=== PATIENT | male | born 1970 | race African-American/Black ===

== ENCOUNTER 2024-12-30 12:35 | Inpatient (IN) | payer BC, OTHER ==
[~2024-12-30] VITALS: Ht 172.7 cm; Wt 86.5 kg
--- NOTE | 2024-12-30 13:10 | ED.PDOC ---
History of Present Illness HPI Comments Patient is a 54-year-old with a past medical history of asthma, prostatomegaly was brought to the ED via EMS with a chief complaint of right flank pain. Reports that the pain started earlier in the morning at around 8:00 a.m. was constant, radiating to his right groin in the right upper quadrant got relieved on its own for about hour and a half and then started to have pain again with similar pattern associated with nausea. Patient denied any vomiting, diarrhea, dysuria. Reported that in the morning he had a bowel movement which was slightly watery in consistency. Denies fever or chills Chief Complaint: Flank Pain Time Seen by MD: 12:43 Allergies: Coded Allergies: NO KNOWN ALLERGIES (Unverified , 12/30/24) Past Medical History PAST MEDICAL HISTORY: Asthma Past Medical History (Other): Prostatomegaly Surgical History: Denies all surgeries Family History Family History: Reviewed,noncontributory to illness Social History Smoker: Non-Smoker Alcohol: Occasionally Drugs: Denies Drug Use Lives In: Home Constitutional: denies: chills, diaphoresis, fatigue, fever, malaise, sweats, weakness, others EENTM: denies: blurred vision, double vision, ear bleeding, ear discharge, ear drainage, ear pain, ear ringing, eye pain, eye redness, hearing loss, mouth pain, mouth swelling, nasal discharge, nose bleeding, nose congestion, nose pain, photophobia, tearing, throat pain, throat swelling, voice changes, others Respiratory: denies: cough, hemoptysis, orthopnea, SOB at rest, shortness of breath, SOB with excertion, stridor, wheezing, others Cardiovascular: denies: chest pain, dizzy spells, diaphoresis, Dyspnea on exertion, edema, irregular heart beat, left arm pain, lightheadedness, palpitations, PND, syncope, others Gastrointestinal: reports: abdominal pain (Right flank pain), nausea Genitourinary: denies: burning, dysuria, flank pain, frequency, hematuria, incontinence, penile discharge, penile sore, pain, testicle pain, testicle swelling, urgency, others Neurological: denies: dizziness, fainting, headache, left sided numbness, left sided weakness, numbness, paresthesia, pre-existing deficit, right sided numbness, right sided weakness, seizure, speech problems, tingling, tremors, weakness, others Musculoskeletal: denies: back pain, gout, joint pain, joint swelling, muscle pain, muscle stiffness, neck pain, others Integumetry: denies: bruises, change in color, change in hair/nails, dryness, laceration, lesions, lumps, rash, wounds, others Allergic/Immunocompromised: denies: Difficulty Healing, Frequent Infections, Hives, Itching, others Hematologic/Lymphatic: denies: anemia, blood clots, easy bleeding, easy bruising, swollen glands, others Physical Exam General Appearance: Mild Distress, Normal HEENT: Normal ENT Inspection, Pharynx Normal, TMs Normal Neck: Full Range of Motion, Non-Tender, Normal, Normal Inspection Respiratory: Chest Non-Tender, Lungs Clear, No Accessory Muscle Use, No Respiratory Distress, Normal Breath Sounds Cardiovascular: No Edema, No JVD, No Murmur, No Gallop, Normal Peripheral Pulses, Regular Rate/Rhythm Breast Exam: Deferred Gastrointestinal: No Organomegaly, Normal Bowel Sounds, RUQ, Tenderness Genitalia: Deferred Pelvic: Deferred Rectal: Deferred Extremities: No calf tenderness, Normal capillary refill, Normal inspection, Normal range of motion, Non-tender, No pedal edema Neurologic: Alert, can dryer II-XII nml as Tested, No Motor Deficits, Normal Affect, Normal Mood, No Sensory Deficits Cerebellar Function: NOT DONE Reflexes: NOT DONE Skin: Dry, Normal Color, Warm Peripheral Pulses: 2+ dorsalis pedis (R), 2+ dorsalis pedis (L), 2+ Radial (R), 2+ Radial (L) Lymphatic: No Adenopathy Was a procedure done? Was a procedure done?: No Differential Dx Considerations may include: Nephrolithiasis, ureteric colic, biliary colic, acute cholecystitis, gastroenteritis, colitis X-Ray, Labs, Meds, VS Vital Signs Date Time Temp Pulse Resp B/P (MAP) Pulse Ox O2 Delivery O2 Flow Rate FiO2 12/30/24 14:01 97.9 65 17 120/77 (91) 98 97.9 12/30/24 14:01 Room Air* 0 21 12/30/24 12:38 97.3 71 18 125/89 (101) 98 97.3 Lab Test 12/30/24 13:15 Range/Units White Blood Count 16.5 H 4.4-10.8 10^3/uL Red Blood Count 4.72 4.5-5.90 10^6/uL Hemoglobin 14.4 13.5-17.5 g/dL Hematocrit 44.0 41.0-53.0 % Mean Corpuscular Volume 93.3 80.0-100.0 fL Mean Corpuscular Hemoglobin 30.5 28.0-32.0 pg Mean Corpuscular Hemoglobin Concent 32.7 32.0-36.0 g/dL Red Cell Distribution Width 13.8 11.8-14.3 % Platelet Count 273 140-450 10^3/uL Mean Platelet Volume 10.1 6.9-10.8 fL Neutrophils (%) (Auto) 86.7 H 37.0-80.0 % Lymphocytes (%) (Auto) 8.3 L 10.0-50.0 % Monocytes (%) (Auto) 4.6 0.0-12.0 % Eosinophils (%) (Auto) 0.1 0.0-7.0 % Basophils (%) (Auto) 0.3 0.0-2.0 % Neutrophils # (Auto) 14.3 H 1.6-8.6 10 ^3/uL Lymphocytes # (Auto) 1.4 0.4-5.4 10 ^3/uL Monocytes # (Auto) 0.8 0-1.3 10 ^3/uL Eosinophils # (Auto) 0 0-0.8 10 ^3/uL Basophils # (Auto) 0.1 0-0.2 10 ^3/uL Nucleated Red Blood Cells 0.1 % Sodium Level 139 136-145 mmol/L Potassium Level 3.8 3.5-5.1 mmol/L Chloride Level 106 98-107 mmol/L Carbon Dioxide Level 23 20-31 mmol/L Anion Gap 10 5-15 Blood Urea Nitrogen 13 9-23 mg/dL Creatinine 1.14 0.700-1.30 mg/dL Glomerular Filtration Rate Calc 76 >90 mL/min BUN/Creatinine Ratio 11.4 10.0-20.0 Serum Glucose 106 74-106 mg/dL Calcium Level 9.4 8.7-10.4 mg/dL Lipase 30 12-53 U/L Current Medications Medications (Trade) Dose Ordered Sig/Maurice Route Start Time Stop Time Status Last Admin Ketorolac Tromethamine (Toradol Injection) 15 mg ONCE ONCE IV 12/30/24 12:45 12/30/24 12:47 DC 12/30/24 14:25 Patient 54 y/o male with c/c of right flank pain, intermittant and crampy started earlier in the morning today. CT abd pelvis showed right UVJ 2mm stone and bladder wall thickening upto 10mm. patient had elevated WBC count. suspecting UTI patient was given IV ABx and fluids, and as the patient continued to have intermittant pain, he will need further inpatient workup and management. Plan of care was explained to the patient and he agreed with the plan. Time of 1ST Reevaluation: 17:01 Reevaluation 1ST: Improved Patient Education/Counseling: Diagnosis, Treatment Family Education/Counseling: No Family Present SEPSIS Sepsis Screen Physician Orders Ct Ab Pel Wo Con-No Oral Or Iv (12/30/24 12:44) Urinalysis (12/30/24 12:44) Heplock Iv (12/30/24 ) Ceftriaxone Ivpb Rocephin (12/30/24 17:30) NS (12/30/24 17:30) Tamsulosin Hydrochloride (Flomax) (12/30/24 17:30) Vital Signs Date Time Temp Pulse Resp B/P (MAP) Pulse Ox O2 Delivery O2 Flow Rate FiO2 12/30/24 14:01 97.9 65 17 120/77 (91) 98 97.9 12/30/24 14:01 Room Air* 0 21 12/30/24 12:38 97.3 71 18 125/89 (101) 98 97.3 Laboratory Tests Test 12/30/24 13:15 White Blood Count 16.5 10^3/uL (4.4-10.8) H Medications Medications Dose Ordered Sig/Maurice Route Start Time Stop Time Status Last Admin Dose Admin Ketorolac Tromethamine 15 mg ONCE ONCE IV 12/30/24 12:45 12/30/24 12:47 DC 12/30/24 14:25 Departure 1 Departure Time of Disposition: 17:35 Impression: Primary Impression: Ureterovesical junction (UVJ) obstruction Additional Impressions: Ureteric calculus Hydronephrosis Disposition: ADMITTED INPATIENT Condition: Stable Critical Care Note Critical Care Time?: No Stability Stability form required: No Heart Score Heart Score: Heart Score Response (Comments) Value History N/A 0 EKG N/A 0 Age N/A 0 Risk Factors N/A 0 Troponin N/A 0 Total 0 CYNDI NEWMAN RESIDENT Dec 30, 2024 13:10
[2024-12-30 13:51] LABS: Hematocrit 44.0 % (41.0-53.0); Hemoglobin 14.4 g/dL (13.5-17.5); Mean Corpuscular Hemoglobin 30.5 pg (28.0-32.0); Mean Corpuscular Volume 93.3 fL (80.0-100.0); Nucleated Red Blood Cells % 0.1 %
[2024-12-30 13:54] LABS: Chloride 106 mmol/L (98-107); Potassium 3.8 mmol/L (3.5-5.1); Sodium 139 mmol/L (136-145)
--- NOTE | 2024-12-30 13:54 | DVH ---
Indication: right flank pain Technique: CT axial images of the abdomen and pelvis are obtained without contrast. Coronal and sagit pernell reformats were obtained. Radiation Dose Information: CTDI volume is 718.23 mGy. Dose-length product is 710.39 mGy*cm Comparison: None FINDINGS: There is limited interpretation of the abdomen and pelvis without administration of intravenous contr ast. Lung bases demonstrate atelectasis. Adrenal glands, spleen pancreas and liver unremarkable in shape. No CT evidence for cholelithiasis. Right kidney demonstrates [id number] right hydroureteronephrosis secondary to a 2 mm calculus o f the right ureterovesicular junction. Left kidney demonstrates no hydronephrosis / nephrolithiasis. Stomach is partially distended. Small bowel loops are normal in caliber. Normal appendix. Moderate volume stool in the colon. Bladder partially distended. Bladder wall thic kening up to 10 mm. No free pelvic fluid. No inguinal lymphadenopathy. Moderate bilateral sacroiliac degenerative joint disease. IMPRESSION: [id number]-[id number] right hydroureteronephrosis secondary to a 2 mm calculus at the right ureterovesicul ar junction. Bladder wall thickening which can be secondary to cystitis, neurogenic bladder, outlet obstruction. Other findings as described.
[2024-12-30 13:55] LABS: Anion Gap 10 (5-15); Carbon Dioxide 23 mmol/L (20-31)
[2024-12-30 13:56] LABS: Calcium 9.4 mg/dL (8.7-10.4)
[2024-12-30 14:01] LABS: BUN/Creatinine Ratio 11.4 (10.0-20.0); Blood Urea Nitrogen 13 mg/dL (9-23); Glucose 106 mg/dL (74-106); Lipase 30 U/L (12-53)
[2024-12-30] MEDS: KETOROLAC TROMETH 30 MG/ML 1ML VIAL IV ONE (14:25)
[2024-12-30] MEDS: cefTRIAXone 1GM/50ML D5W 50 ML IV ONE (17:45)
[2024-12-30] MEDS: TAMSULOSIN HYDROCHLORIDE 0.4 MG CAP PO ONE (17:45)
[2024-12-30] MEDS: SODIUM CHLORIDE 0.9% 1,000 ML IV ONE (17:45)
[2024-12-30 18:23] LABS: Urine Protein, UAD Negative (Negative)
[2024-12-30] MEDS ORDERED: ONDANSETRON HCL 4 MG/2 ML VIAL IV PRN (19:00)
[2024-12-30] MEDS ORDERED: ACETAMINOPHEN 325 MG TAB PO PRN (19:00)
[2024-12-30] MEDS ORDERED: HYDROcodone-ACET 5/325MG TAB PO PRN (19:00)
[2024-12-30] MEDS ORDERED: MORPHINE SULFATE INJ 2 MG/ml SYRG IV PRN (19:00)
[2024-12-30 20:12] VITALS: RESP 18; O2SAT 99
[2024-12-30 20:30] VITALS: BP 129/72; PULSE 73; RESP 16; TEMP 97.5; O2SAT 98
[2024-12-30 20:43] VITALS: BP 129/72; PULSE 73; RESP 16; TEMP 97.5; O2SAT 98
--- NOTE | 2024-12-30 21:15 | DVHHP2 ---
History of Present Illness Reason for Visit: Flank pain History of Present Illness 54-year-old male presents for evaluation of flank pain. Patient endorses a one day history of right-sided flank pain with associated nausea and vomiting. Denies fever or chills. No dysuria or hematuria. Past Medical History Asthma Past Surgical History Denies Family History Noncontributory Smoke: No ALCOHOL: occassional Drugs: None Lives: with Family Review of Systems Review of Systems Review of systems are currently negative otherwise addressed in HPI. Allergies: Coded Allergies: NO KNOWN ALLERGIES (Unverified , 12/30/24) Medications Current Medications Medications Dose Ordered Sig/Maurice Route Start Time Stop Time Status Last Admin Dose Admin Ceftriaxone Sodium 50 ml @ 100 mls/hr DAILY@09 IV 12/31/24 09:00 Acetaminophen/ Hydrocodone Bitart 1 tab Q4HP PRN PO 12/30/24 19:00 Ondansetron HCl 4 mg Q4HP PRN IV 12/30/24 19:00 Acetaminophen 650 mg Q6HP PRN PO 12/30/24 19:00 Morphine Sulfate 2 mg Q4HPRN PRN IV 12/30/24 19:00 Exam Vital Signs Vital Signs Date Time Temp Pulse Resp B/P (MAP) Pulse Ox O2 Delivery O2 Flow Rate FiO2 12/30/24 20:43 97.5 73 16 129/72 (91) 98 97.5 12/30/24 17:20 Room Air 12/30/24 14:01 0 21 Exam Gen: 54-year-old male in mild distress Skin: Warm, dry, normal color and texture, no rash. HEENT: Normocephalic atraumatic, mucous membranes moist and pink. Neck: Cervical and supraclavicular nodes normal without enlargement, trachea is midline, thyroid gland is normal without masses. Pulmonary: Clear to auscultation and percussion bilaterally. Cardiac: Regular rate and rhythm. No murmur Abdomen: Soft, right CVA tenderness, nondistended, bowel sounds present all 4 quadrants, no guarding, no rigidity, no organomegaly. Extremities: No cyanosis, clubbing, no edema Neuro: Cranial nerves II through XII grossly intact, normal affect and speech, no focal motor deficits. Labs/Xrays ORDERING PHYSICIAN: CYNDI NEWMAN RESIDENT PROCEDURE(s): ABPL - CT AB PEL WO CON-NO ORAL OR IV REASON: right flank pain ORDER NUMBER(s): [id number], ACCESSION NUMBER(s): [id number] Indication: right flank pain Technique: CT axial images of the abdomen and pelvis are obtained without contrast. Coronal and sagittal reformats were obtained. Radiation Dose Information: CTDI volume is 718.23 mGy. Dose-length product is 710.39 mGy*cm Comparison: None FINDINGS: There is limited interpretation of the abdomen and pelvis without administration of intravenous contrast. Lung bases demonstrate atelectasis. Adrenal glands, spleen pancreas and liver unremarkable in shape. No CT evidence for cholelithiasis. Right kidney demonstrates [id number]-[id number] right hydroureteronephrosis secondary to a 2 mm calculus of the right ureterovesicular junction. Left kidney demonstrates no hydronephrosis / nephrolithiasis. Stomach is partially distended. Small bowel loops are normal in caliber. Normal appendix. Moderate volume stool in the colon. Bladder partially distended. Bladder wall thickening up to 10 mm. No free pelvic fluid. No inguinal lymphadenopathy. Moderate bilateral sacroiliac degenerative joint disease. IMPRESSION: Emaf-lq-xngbxevc right hydroureteronephrosis secondary to a 2 mm calculus at the right ureterovesicular junction. Bladder wall thickening which can be secondary to cystitis, neurogenic bladder, outlet obstruction. Other findings as described. Labs Test 12/30/24 18:04 12/30/24 13:15 Range/Units Urine Color Yellow Yellow Urine Clarity Clear Clear Urine pH 5.0 5.0-9.0 Urine Specific [place] 1.025 1.001-1.035 Urine Protein Negative Negative Urine Ketones 1+ H Negative Urine Blood 2+ H Negative /uL Urine Nitrite Negative Negative Urine Bilirubin Negative Negative Urine Urobilinogen Normal Negative mg/dL Urine Leukocyte Esterase Negative Negative /uL Urine RBC 39 0 - 3 /hpf Urine Microscopic WBC 2 0-3 /HPF Urine Squamous Epithelial Cells None seen <5 /hpf Urine Bacteria None seen None Seen /hpf Urine Mucus Few None Seen Urine Glucose Normal Normal mg/dL White Blood Count 16.5 H 4.4-10.8 10^3/uL Red Blood Count 4.72 4.5-5.90 10^6/uL Hemoglobin 14.4 13.5-17.5 g/dL Hematocrit 44.0 41.0-53.0 % Mean Corpuscular Volume 93.3 80.0-100.0 fL Mean Corpuscular Hemoglobin 30.5 28.0-32.0 pg Mean Corpuscular Hemoglobin Concent 32.7 32.0-36.0 g/dL Red Cell Distribution Width 13.8 11.8-14.3 % Platelet Count 273 140-450 10^3/uL Mean Platelet Volume 10.1 6.9-10.8 fL Neutrophils (%) (Auto) 86.7 H 37.0-80.0 % Lymphocytes (%) (Auto) 8.3 L 10.0-50.0 % Monocytes (%) (Auto) 4.6 0.0-12.0 % Eosinophils (%) (Auto) 0.1 0.0-7.0 % Basophils (%) (Auto) 0.3 0.0-2.0 % Neutrophils # (Auto) 14.3 H 1.6-8.6 10 ^3/uL Lymphocytes # (Auto) 1.4 0.4-5.4 10 ^3/uL Monocytes # (Auto) 0.8 0-1.3 10 ^3/uL Eosinophils # (Auto) 0 0-0.8 10 ^3/uL Basophils # (Auto) 0.1 0-0.2 10 ^3/uL Nucleated Red Blood Cells 0.1 % Sodium Level 139 136-145 mmol/L Potassium Level 3.8 3.5-5.1 mmol/L Chloride Level 106 98-107 mmol/L Carbon Dioxide Level 23 20-31 mmol/L Anion Gap 10 5-15 Blood Urea Nitrogen 13 9-23 mg/dL Creatinine 1.14 0.700-1.30 mg/dL Glomerular Filtration Rate Calc 76 >90 mL/min BUN/Creatinine Ratio 11.4 10.0-20.0 Serum Glucose 106 74-106 mg/dL Calcium Level 9.4 8.7-10.4 mg/dL Lipase 30 12-53 U/L SEPSIS Sepsis Screen Date sepsis recognized/suspect: Dec 30, 2024 Time Sepsis recognized/suspect: 8 Recent Procedure: No On Antibiotic Therapy: No Respiratory Rate >20: No Heart Rate >90: No Temp<36 C (96.8 F) or >38.3 C: No SBP <90 or MAP <65 mmHG: No New Acute Mental Status Change: No Is the patient on CPAP, BIPAP,: No Physician Orders Ceftriaxone 1gm/50ml D5w (Rocephin) (12/31/24 09:00) * Urology Consult (12/30/24 18:58) Basic Metabolic Panel (12/31/24 04:00) Admit (12/30/24 18:58) Hydrocodone-Acet 5/325mg Tab ([place] 5/32 (12/30/24 19:00) Ondansetron Hcl (Zofran) (12/30/24 19:00) Complete Blood Count (12/31/24 04:00) Condition: Stable (12/30/24 18:58) Acetaminophen Tablet (Tylenol Tablet) (12/30/24 19:00) Bedrest With Bathroom Privileg (12/30/24 18:58) Morphine Sulfate Injection (12/30/24 19:00) Regular Diet (12/31/24 Breakfast) Vital Signs Date Time Temp Pulse Resp B/P (MAP) Pulse Ox O2 Delivery O2 Flow Rate FiO2 12/30/24 20:43 97.5 73 16 129/72 (91) 98 97.5 12/30/24 17:20 98.4 62 18 132/84 (100) 99 98.4 12/30/24 17:20 62 18 99 Room Air 12/30/24 14:01 97.9 65 17 120/77 (91) 98 97.9 12/30/24 14:01 Room Air* 0 21 Laboratory Tests Test 12/30/24 13:15 White Blood Count 16.5 10^3/uL (4.4-10.8) H Medications Medications Dose Ordered Sig/Maurice Route Start Time Stop Time Status Last Admin Dose Admin Ceftriaxone Sodium 50 ml @ 100 mls/hr ONCE ONCE IV 12/30/24 17:30 12/30/24 18:01 DC 12/30/24 17:45 100 MLS/HR Ketorolac Tromethamine 15 mg ONCE ONCE IV 12/30/24 12:45 12/30/24 12:47 DC 12/30/24 14:25 15 MG Sodium Chloride 1,000 ml @ 1,000 mls/hr Q1H ONCE IV 12/30/24 17:30 7/16/25 18:29 DC 12/30/24 17:45 1,000 MLS/HR Tamsulosin HCl 0.4 mg ONCE ONCE PO 12/30/24 17:30 12/30/24 17:31 DC 12/30/24 17:45 0.4 MG Assessment/Plan Assessment/Plan Assessment Renal colic Right hydronephrosis Leukocytosis Plan Admit the patient to Med surge to the hospitalist Pain management Urology consult Flomax/NS Rocephin Continue treatment per orders. Plan discussed with: Patient My Orders Orders - SAAN ESCOBAR Procedure Category Date Status Time Ceftriaxone 1gm/50ml PHA 12/31/24 In Process D5w (Rocephin) 09:00 * Urology Consult CONS 12/30/24 Transmitted 18:58 Basic Metabolic Panel LAB 12/31/24 Verified 04:00 Admit ADMIT 12/30/24 Transmitted 18:58 Hydrocodone-Acet PHA 12/30/24 In Process 5/325mg Tab ([place] 19:00 Ondansetron Hcl PHA 12/30/24 In Process (Zofran) 19:00 Complete Blood Count LAB 12/31/24 Verified 04:00 Condition: Stable ANGELA 12/30/24 In Process 18:58 Acetaminophen Tablet PHA 12/30/24 In Process (Tylenol Tablet) 19:00 Bedrest With Bathroom ANGELA 12/30/24 In Process Privileg 18:58 Morphine Sulfate PHA 12/30/24 In Process Injection 19:00 Regular Diet DIET 12/31/24 Verified Breakfast Date of Service: Dec 30, 2024 Billing Provider: SANA ESCOBAR Common Visit Codes: [id number] INP/OBS CARE (MOD) SANA ESCOBAR Dec 30, 2024 21:15
[2024-12-31] VITALS (7 sets, daily range): BP systolic 100–126; BP diastolic 59–91; PULSE 64–84; RESP 14–18; TEMP 97.4–98.7; O2SAT 96–98
[2024-12-31 06:24] LABS: Potassium 3.7 mmol/L (3.5-5.1); Sodium 141 mmol/L (136-145)
[2024-12-31 06:26] LABS: Anion Gap 7 (5-15); Calcium 9.2 mg/dL (8.7-10.4); Carbon Dioxide 24 mmol/L (20-31)
[2024-12-31 06:29] LABS: Chloride 110 mmol/L (98-107)
[2024-12-31 06:30] LABS: Hematocrit 38.3 % (41.0-53.0); Hemoglobin 12.7 g/dL (13.5-17.5); Mean Corpuscular Hemoglobin 30.9 pg (28.0-32.0); Mean Corpuscular Volume 92.9 fL (80.0-100.0); Nucleated Red Blood Cells % 0.0 %
[2024-12-31 06:31] LABS: BUN/Creatinine Ratio 15.7 (10.0-20.0); Blood Urea Nitrogen 17 mg/dL (9-23)
[2024-12-31 07:02] LABS: Glucose 103 mg/dL (74-106)
--- NOTE | 2024-12-31 08:26 | DVHINCON2 ---
Date of service: Dec 31, 2024 Referring Physician Hospitalist Reason for Consultation ureteral stone. History of Present Illness History Source: Patient, RN Notes, MD Notes Exam Limitations: No limitations HPI 54 yo male with hx of BPH pt of [facility]. currently asymptomatic no prior stone history. Past Medical History Renal/: Benign prostatic enlarg. Patient Family History: Diabetes mellitus G8 FATHER High blood pressure G8 FATHER Review of Systems Constitutional: No symptom reported Ears, Nose, & Throat: No symptom reported Eyes: No symptom reported Pulmonary/Respiratory: No symptom reported Cardiovascular: No symptom reported Gastrointestinal: No symptom reported Genitourinary: No symptom reported Musculoskeletal: No symptom reported Skin: No symptom reported Psychiatric: No symptom reported Endocrine: No symptom reported Hemotologic/Lymphatic: No symptom reported H&P Exam Vital Signs Vital Signs Date Time Temp Pulse Resp B/P (MAP) Pulse Ox O2 Delivery O2 Flow Rate FiO2 12/31/24 05:00 98.0 82 14 118/65 (82) 96 98.0 12/30/24 20:12 Room Air* 0 21 General Appeara: Well developed, Well nourished, Normal Appearance Neuro/Mental St: Alert, Oriented Appearance: Appropriate appearance, Appropriate insight Eye contact/ Speech: Cooperative, Good eye contact, Normal speech Skin Exam: Normal inspection, Normal color, Warm/dry Labs/Xrays [place] [id number] Ph: [phone] DIAGNOSTIC IMAGING Diagnostic Imaging Report : [id number] Signed PATIENT: KAYLEY BLAKE ACCT: [id number] UNIT: [id number] : 1970 LOC: ER ROOM / BED: / AGE / SEX: 54 / M ADM STATUS: REG ER SERVICE 1244 ORDERING PHYSICIAN: CYNDI NEWMAN RESIDENT PROCEDURE(s): ABPL - CT AB PEL WO CON-NO ORAL OR IV REASON: right flank pain ORDER NUMBER(s): [id number], ACCESSION NUMBER(s): [id number] Indication: right flank pain Technique: CT axial images of the abdomen and pelvis are obtained without contrast. Coronal and sagittal reformats were obtained. Radiation Dose Information: CTDI volume is 718.23 mGy. Dose-length product is 710.39 mGy*cm Comparison: None FINDINGS: There is limited interpretation of the abdomen and pelvis without administration of intravenous contrast. Lung bases demonstrate atelectasis. Adrenal glands, spleen pancreas and liver unremarkable in shape. No CT evidence for cholelithiasis. Right kidney demonstrates rozf-vg-sgrwyrmu right hydroureteronephrosis secondary to a 2 mm calculus of the right ureterovesicular junction. Left kidney demonstrates no hydronephrosis / nephrolithiasis. Stomach is partially distended. Small bowel loops are normal in caliber. Normal appendix. Moderate volume stool in the colon. Bladder partially distended. Bladder wall thickening up to 10 mm. No free pelvic fluid. No inguinal lymphadenopathy. Moderate bilateral sacroiliac degenerative joint disease. IMPRESSION: Eafb-re-tvpljcaw right hydroureteronephrosis secondary to a 2 mm calculus at the right ureterovesicular junction. Bladder wall thickening which can be secondary to cystitis, neurogenic bladder, outlet obstruction. Other findings as described. ATED BY: MICHAEL LANDERS MD DICTATED DATE/TIME: 12/30/24 1353 SIGNED BY: MICHAEL LANDERS MD SIGNED DATE/TIME: 12/30/24 1353 CC: Labs Test 12/31/24 05:18 12/30/24 18:04 12/30/24 13:15 Range/Units White Blood Count 11.6 #H 4.4-10.8 10^3/uL Red Blood Count 4.12 L 4.5-5.90 10^6/uL Hemoglobin 12.7 L 13.5-17.5 g/dL Hematocrit 38.3 #L 41.0-53.0 % Mean Corpuscular Volume 92.9 80.0-100.0 fL Mean Corpuscular Hemoglobin 30.9 28.0-32.0 pg Mean Corpuscular Hemoglobin Concent 33.3 32.0-36.0 g/dL Red Cell Distribution Width 13.9 11.8-14.3 % Platelet Count 246 140-450 10^3/uL Mean Platelet Volume 10.3 6.9-10.8 fL Neutrophils (%) (Auto) 73.9 37.0-80.0 % Lymphocytes (%) (Auto) 16.8 10.0-50.0 % Monocytes (%) (Auto) 8.3 0.0-12.0 % Eosinophils (%) (Auto) 0.7 0.0-7.0 % Basophils (%) (Auto) 0.3 0.0-2.0 % Neutrophils # (Auto) 8.6 1.6-8.6 10 ^3/uL Lymphocytes # (Auto) 2.0 0.4-5.4 10 ^3/uL Monocytes # (Auto) 1.0 0-1.3 10 ^3/uL Eosinophils # (Auto) 0.1 0-0.8 10 ^3/uL Basophils # (Auto) 0 0-0.2 10 ^3/uL Nucleated Red Blood Cells 0.0 % Sodium Level 141 136-145 mmol/L Potassium Level 3.7 3.5-5.1 mmol/L Chloride Level 110 H 98-107 mmol/L Carbon Dioxide Level 24 20-31 mmol/L Anion Gap 7 5-15 Blood Urea Nitrogen 17 9-23 mg/dL Creatinine 1.08 0.700-1.30 mg/dL Glomerular Filtration Rate Calc 82 >90 mL/min BUN/Creatinine Ratio 15.7 10.0-20.0 Serum Glucose 103 74-106 mg/dL Calcium Level 9.2 8.7-10.4 mg/dL Urine Color Yellow Yellow Urine Clarity Clear Clear Urine pH 5.0 5.0-9.0 Urine Specific [place] 1.025 1.001-1.035 Urine Protein Negative Negative Urine Ketones 1+ H Negative Urine Blood 2+ H Negative /uL Urine Nitrite Negative Negative Urine Bilirubin Negative Negative Urine Urobilinogen Normal Negative mg/dL Urine Leukocyte Esterase Negative Negative /uL Urine RBC 39 0 - 3 /hpf Urine Microscopic WBC 2 0-3 /HPF Urine Squamous Epithelial Cells None seen <5 /hpf Urine Bacteria None seen None Seen /hpf Urine Mucus Few None Seen Urine Glucose Normal Normal mg/dL Lipase 30 12-53 U/L Assessment/Plan Problem List: (1) Hydronephrosis (2) Ureteric calculus (3) Ureterovesical junction (UVJ) obstruction Plan expulsive measures fluids pain meds prn cleared from urology standpoint Plan discussed with: Patient, Other BRIGIDO BARCENAS NP Dec 31, 2024 08:26
[2024-12-31] MEDS: cefTRIAXone 1GM/50ML D5W 50 ML IV SCH (09:30)
--- NOTE | 2024-12-31 23:20 | DVHPN2 ---
Subjective minimal pain Reviewed: H&P, Labs Changes from previous H/P or p: No Changes Objective Vitals Vital Signs Date Time Temp Pulse Resp B/P (MAP) Pulse Ox O2 Delivery O2 Flow Rate FiO2 12/31/24 21:00 97.9 73 17 126/73 (90) 96 97.9 12/31/24 08:00 Room Air* 0 21 Intake/Output Intake and Output 12/31/24 07:00 Intake Total 0 ml Balance 0 ml Intake Oral 0 ml General Appearance: Alert, Oriented X3 HEENT: Atraumatic Lungs: Clear to auscultation Cardiovascular: Regular rate, Normal S2 Abdomen: Normal bowel sounds Medications Current Medications Medications Dose Ordered Sig/Maurice Route Start Time Stop Time Status Last Admin Dose Admin Ceftriaxone Sodium 50 ml @ 100 mls/hr DAILY@09 IV 12/31/24 09:00 12/31/24 09:30 100 MLS/HR Acetaminophen/ Hydrocodone Bitart 1 tab Q4HP PRN PO 12/30/24 19:00 Ondansetron HCl 4 mg Q4HP PRN IV 12/30/24 19:00 Acetaminophen 650 mg Q6HP PRN PO 12/30/24 19:00 Morphine Sulfate 2 mg Q4HPRN PRN IV 12/30/24 19:00 Laboratory Results Laboratory Tests 12/31/24 05:18 Chemistry Test 12/31/24 05:18 Calcium Level 9.2 mg/dL (8.7-10.4) Urinalysis Test 12/30/24 18:04 Urine Color Yellow (Yellow) Urine Clarity Clear (Clear) Urine pH 5.0 (5.0-9.0) Urine Specific [place] 1.025 (1.001-1.035) Urine Protein Negative (Negative) Urine Ketones 1+ (Negative) H Urine Blood 2+ /uL (Negative) H Urine Nitrite Negative (Negative) Urine Bilirubin Negative (Negative) Urine Urobilinogen Normal mg/dL (Negative) Urine Leukocyte Esterase Negative /uL (Negative) Urine RBC 39 /hpf (0 - 3) Urine Microscopic WBC 2 /HPF (0-3) Urine Squamous Epithelial Cells None seen /hpf (<5) Urine Bacteria None seen /hpf (None Seen) Urine Mucus Few (None Seen) Urine Glucose Normal mg/dL (Normal) Assessment/Plan Assessment/Plan Renal colic Right hydronephrosis Leukocytosis Continue flomax urology recommended conservative management Plan discussed with: Patient My Orders Orders - LORENA CROSS MD Procedure Category Date Status Time Strain All Urine For ANGELA 12/31/24 In Process Stones 11:44 Date of Service: Dec 31, 2024 Billing Provider: LORENA CROSS MD Common Visit Codes: [id number] INP/OBS CARE(HIGH) LORENA CROSS MD Dec 31, 2024 23:20
[2025-01-01 01:00] VITALS: BP 126/82; PULSE 69; RESP 17; TEMP 97.7; O2SAT 97
[2025-01-01 05:00] VITALS: BP 130/87; PULSE 67; RESP 17; TEMP 97.9; O2SAT 97
[2025-01-01 08:00] VITALS: RESP 18
[2025-01-01 09:00] VITALS: BP 125/85; PULSE 59; RESP 14; TEMP 97.2; O2SAT 96
[2025-01-01 10:07] LABS: Hepatitis B Surface Antigen Negative (Negative)
[2025-01-01 10:48] LABS: Hepatitis C Antibody Negative (Negative)
[2025-01-01] MEDS ORDERED: CIP500T GT (11:51)
[2025-01-01] MEDS ORDERED: TAMS0.4C39 PO (11:51)
[2025-01-01 13:00] VITALS: BP 119/74; PULSE 76; RESP 16; TEMP 97.3; O2SAT 96
[2025-01-01] MEDS ORDERED: TAMS-35 PO (16:45)
[2025-01-01] MEDS ORDERED: CIPR500T4 PO (16:45)
[2025-01-01 16:52] VITALS: BP 133/84; PULSE 71; RESP 16; TEMP 97.6; O2SAT 98
== END 2025-01-01 16:57 | disposition home or self-care (01) | DRG 694 ==
LOC: ER 12:35 → EDUNIT# 12:35 → EDBD 12:35 → OVERFLOW 18:58 → EAST 19:00
PROVIDERS: ADMIT Hospitalist; ATTEND Hospitalist
DX: N13.2 Hydronephrosis with renal and ureteral calculous obstruction (principal); J45.909 Unspecified asthma, uncomplicated; D72.829 Elevated white blood cell count, unspecified; N40.0 Benign prostatic hyperplasia without lower urinary tract symptoms; Z83.3 Family history of diabetes mellitus
CPT/HCPCS: 36415; 74176; 80048; 81001; 83690; 85025; 86803; 87340; 96361; 96365; G0378; J1885

== ENCOUNTER 2025-03-01 11:46 | Emergency (ER) | payer OTHER ==
[~2025-03-01] VITALS: Ht 172.7 cm; Wt 84.8 kg
[~2025-03-01 11:46] MED LIST: CIPR500T4 PO; TAMS-35 PO
--- NOTE | 2025-03-01 11:55 | ECG ---
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
--- NOTE | 2025-03-01 12:30 | DVH ---
EXAM: XY CHEST PORTABLE HISTORY: palpitations COMPARISON: None TECHNIQUE: Portable upright AP view of the chest was performed. FINDINGS: No pneumothorax, consolidative infiltrates, or pulmonary edema. There are calcified granulomas in the right lung. The heart is not enlarged. There is thoracic degenerative disc disease. IMPRESSION: No acute intrathoracic process.
--- NOTE | 2025-03-01 12:41 | ECG ---
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
--- NOTE | 2025-03-01 12:43 | ED.PDOC ---
HPI Comments 54y M with a history of asthma and kidney stones presents to the ED for chief complaint of palpitations. Pt states he has been having palpitations described as an irregular heart beat since last night associated with anxiety. Pt states he woke up this AM and started to have palpitations and states he felt "weird" and came to the ED for evaluation. Pt now in the ED, denies chest pain, shortness of breath, dizziness, syncope, fever, cough, chills or associated symptoms. Pt only has noted history of asthma and denies taking any medications otherwise. Pt states he has family history of nonspecific cardiac problems. Pt in the ED, has noted BP of 141/96 with otherwise stable vitals including temp of 98.2 F, heart rate 83, rr 18 and 02 sat of 98% on room air. Pt otherwise denies any other symptoms at this time. Chief Complaint: Palpitations Time Seen by MD: 12:42 Reviewed Notes: Medications, Allergies Allergies: Coded Allergies: NO KNOWN ALLERGIES (Unverified , 12/30/24) Home Meds Active Scripts Tamsulosin Hcl (Flomax) 0.4 Mg Cap, 1 CAP PO DAILY for 7 Days, #30 CAP 11 Refills Prov:LORENA CROSS MD 01/01/25 Ciprofloxacin Hcl (Ciprofloxacin Hcl) 500 Mg Tab, 1 TAB PO BID for 5 Days, #10 TAB Prov:LORENA CROSS MD 01/01/25 Information Source: Patient Mode of Arrival: Ambulatory Past Medical History PAST MEDICAL HISTORY: Asthma, Kidney Stones Surgical History: Denies all surgeries Family History Family History: Reviewed,noncontributory to illness Social History Smoker: Cigar Alcohol: Occasionally Drugs: Denies Drug Use Lives In: Home All Other Systems: Reviewed and Negative (see HPI) Physical Exam General Appearance: No Apparent Distress HEENT: Other (Pupils and face symmetric. Moist mucous membranes.) Neck: Full Range of Motion, Normal Inspection Respiratory: Lungs Clear, No Accessory Muscle Use, No Respiratory Distress, Normal Breath Sounds Cardiovascular: Irregular, No Edema, No JVD Breast Exam: Deferred Gastrointestinal: Non Tender, Soft Genitalia: Deferred Pelvic: Deferred Rectal: Deferred Extremities: Normal inspection, Normal range of motion, Non-tender, No pedal edema Neurologic: Alert (Oriented x4), Normal Affect, Normal Mood, Other (Ambulatory) Cerebellar Function: NOT DONE Reflexes: NOT DONE Skin: Dry, Normal Color, Warm Lymphatic: NOT DONE EKG EKG #1: Comments Sinus rhythm with sinus arrhythmia, rate 81, normal intervals, normal axis, normal QRS, no ST/T changes, occasional PVCs EKG #2: Comments Sinus rhythm with sinus arrhythmia, rate 78, normal intervals, normal axis, normal QRS, multiple PACs and PVCs, no ST/T changes. EKG #3: Comments Sinus rhythm, rate 75, normal intervals, normal axis, normal QRS, no ST/T changes. Single PVC. Was a procedure done? Was a procedure done?: No CP Differential Dx Differential Diagnosis: A-fib, A-Flutter, Anxiety / Panic Attack, Atrial Dysrhythmia, Electrolyte Disorder, Heart Failure, [place], Pulmonary Embolus, PVC's, Sinus Tachycardia, Ventricular Dysrhythmia X-Ray, Labs, Meds, VS Vital Signs Date Time Temp Pulse Resp B/P (MAP) Pulse Ox O2 Delivery O2 Flow Rate FiO2 03/01/25 14:51 75 03/01/25 12:40 78 03/01/25 11:50 81 03/01/25 11:49 98.2 83 18 141/96 98 98.2 Lab Test 03/01/25 14:09 03/01/25 12:52 03/01/25 12:35 Range/Units Troponin I High Sensitivity < 3 L 3 L </=54 ng/L White Blood Count 15.3 H 4.4-10.8 10^3/uL Red Blood Count 4.62 4.5-5.90 10^6/uL Hemoglobin 14.3 13.5-17.5 g/dL Hematocrit 42.7 41.0-53.0 % Mean Corpuscular Volume 92.4 80.0-100.0 fL Mean Corpuscular Hemoglobin 31.0 28.0-32.0 pg Mean Corpuscular Hemoglobin Concent 33.5 32.0-36.0 g/dL Red Cell Distribution Width 13.5 11.8-14.3 % Platelet Count 302 140-450 10^3/uL Mean Platelet Volume 9.8 6.9-10.8 fL Neutrophils (%) (Auto) 69.8 37.0-80.0 % Lymphocytes (%) (Auto) 22.1 10.0-50.0 % Monocytes (%) (Auto) 6.2 0.0-12.0 % Eosinophils (%) (Auto) 0.9 0.0-7.0 % Basophils (%) (Auto) 1.0 0.0-2.0 % Neutrophils # (Auto) 10.7 H 1.6-8.6 10 ^3/uL Lymphocytes # (Auto) 3.4 0.4-5.4 10 ^3/uL Monocytes # (Auto) 0.9 0-1.3 10 ^3/uL Eosinophils # (Auto) 0.1 0-0.8 10 ^3/uL Basophils # (Auto) 0.2 0-0.2 10 ^3/uL Nucleated Red Blood Cells 0.0 % D-Dimer, Quantitative 0.25 0.0-0.49 mg/L FEU Sodium Level 142 136-145 mmol/L Potassium Level 3.4 L 3.5-5.1 mmol/L Chloride Level 104 98-107 mmol/L Carbon Dioxide Level 27 20-31 mmol/L Anion Gap 11 5-15 Blood Urea Nitrogen 8 L 9-23 mg/dL Creatinine 1.14 0.700-1.30 mg/dL Glomerular Filtration Rate Calc 76 >90 mL/min BUN/Creatinine Ratio 7.0 L 10.0-20.0 Serum Glucose 106 74-106 mg/dL Calcium Level 9.4 8.7-10.4 mg/dL Magnesium Level 1.8 1.6-2.6 mg/dL B-Type Natriuretic Peptide 20.20 0-100 pg/mL Urine Color Light-yellow Yellow Urine Clarity Clear Clear Urine pH 5.0 5.0-9.0 Urine Specific [place] 1.011 1.001-1.035 Urine Protein Negative Negative Urine Ketones Negative Negative Urine Blood Negative Negative /uL Urine Nitrite Negative Negative Urine Bilirubin Negative Negative Urine Urobilinogen Normal Negative mg/dL Urine Leukocyte Esterase Negative Negative /uL Urine RBC 2 0 - 3 /hpf Urine Microscopic WBC 1 0-3 /HPF Urine Squamous Epithelial Cells None seen <5 /hpf Urine Bacteria None seen None Seen /hpf Urine Glucose Normal Normal mg/dL [facility] [id number] [place] [id number] Ph: [phone] DIAGNOSTIC IMAGING Diagnostic Imaging Report : [id number] Signed PATIENT: KAYLEY BLAKE ACCT: [id number] UNIT: [id number] : 1970 LOC: ER ROOM / BED: / AGE / SEX: 54 / M ADM STATUS: REG ER SERVICE 1203 ORDERING PHYSICIAN: TORRI TURNER MD PROCEDURE(s): CXRP - CHEST PORTABLE REASON: palpitations ORDER NUMBER(s): [id number], ACCESSION NUMBER(s): [id number] EXAM: XY CHEST PORTABLE HISTORY: palpitations COMPARISON: None TECHNIQUE: Portable upright AP view of the chest was performed. FINDINGS: No pneumothorax, consolidative infiltrates, or pulmonary edema. There are calcified granulomas in the right lung. The heart is not enlarged. There is thoracic degenerative disc disease. IMPRESSION: No acute intrathoracic process. ATED BY: QIAN SANTOYO MD DICTATED DATE/TIME: 03/01/258 SIGNED BY: QIAN SANTOYO MD SIGNED DATE/TIME: 03/01/258 CC: X-Ray, Labs, Meds, VS Comment 54-year-old male with a history of asthma and kidney stones presenting with palpitations Vitals remarkable for BP 141/96 Exam remarkable for irregular heartbeat Rhythm strip independently interpreted by me: Sinus rhythm sinus arrhythmia, rate 81, PVCs and PACs Chest x-ray unremarkable CBC remarkable for WBC 15.3, basic metabolic panel remarkable for potassium 3.4. BNP, 2 troponins and magnesium unremarkable Patient treated with the following in the ED: Effervescent potassium 50 mEq p.o. On re-evaluation, patient states his symptoms have improved. He is not complaining of chest pain, shortness a breath or palpitations. Vitals were stable. Hospitalization was considered, however patient had rapid improvement of symptoms with treatment in the ED, and I no longer feel hospitalization is necessary. Patient now appears stable for discharge with close outpatient follow-up with his primary doctor. Encouraged hydration with electrolytes. Time of 1ST Reevaluation: 13:30 Reevaluation 1ST: Unchanged Patient Education/Counseling: Diagnosis, Treatment Family Education/Counseling: No Family Present SEPSIS Sepsis Screen Date sepsis recognized/suspect: Mar 01, 2025 Time Sepsis recognized/suspect: 1149 Recent Procedure: No On Antibiotic Therapy: No Respiratory Rate >20: No Heart Rate >90: No Temp<36 C (96.8 F) or >38.3 C: No SBP <90 or MAP <65 mmHG: No New Acute Mental Status Change: No Is the patient on CPAP, BIPAP,: No Physician Orders Chest Portable (03/01/25 12:03) Vital Signs Date Time Temp Pulse Resp B/P (MAP) Pulse Ox O2 Delivery O2 Flow Rate FiO2 03/01/25 14:51 75 03/01/25 12:40 78 03/01/25 11:50 81 03/01/25 11:49 98.2 83 18 141/96 98 98.2 Laboratory Tests Test 03/01/25 12:52 White Blood Count 15.3 10^3/uL (4.4-10.8) H Departure 1 Departure Time of Disposition: 14:30 Impression: Primary Impression: PVCs (premature ventricular contractions) Additional Impressions: PAC (premature atrial contraction) Sinus arrhythmia Hypokalemia Disposition: HOME / SELF CARE / HOMELESS Condition: Stable Additional Instructions: Your blood tests showed you have a slightly low potassium. This may contribute to your irregular heartbeat. We have corrected this in the ED. your other blood tests, including screening test for heart attack, heart failure and blood clots, were unremarkable. Your chest x-ray was normal. No additional medication is required at this time. Continue adequate oral hydration. Consider hydrating with electrolyte containing beverages. Follow-up with your primary doctor in 1- 2 days. Return to ER for persistent or worsening symptoms. Discharged With: Self Critical Care Note Critical Care Time?: No Stability Stability form required: No Heart Score Heart Score: Heart Score Response (Comments) Value History N/A 0 EKG N/A 0 Age N/A 0 Risk Factors N/A 0 Troponin N/A 0 Total 0 I personally scribed for TORRI TURNER MD ([email or web address]) on 03/01/25 at 12:43. Electronically submitted by Stefano Andrade ([email or web address]). TORRI TURNER MD Mar 01, 2025 12:43
[2025-03-01 13:29] LABS: Hematocrit 42.7 % (41.0-53.0); Hemoglobin 14.3 g/dL (13.5-17.5); Mean Corpuscular Hemoglobin 31.0 pg (28.0-32.0); Mean Corpuscular Volume 92.4 fL (80.0-100.0); Nucleated Red Blood Cells % 0.0 %
[2025-03-01 13:40] LABS: Chloride 104 mmol/L (98-107); Sodium 142 mmol/L (136-145)
[2025-03-01 13:41] LABS: Anion Gap 11 (5-15); Calcium 9.4 mg/dL (8.7-10.4); Carbon Dioxide 27 mmol/L (20-31)
[2025-03-01 13:46] LABS: BUN/Creatinine Ratio 7.0 (10.0-20.0); Glucose 106 mg/dL (74-106)
[2025-03-01 13:47] LABS: Blood Urea Nitrogen 8 mg/dL (9-23); Potassium 3.4 mmol/L (3.5-5.1)
[2025-03-01 14:15] LABS: Urine Protein, UAD Negative (Negative)
--- NOTE | 2025-03-01 14:53 | ECG ---
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
[2025-03-01 16:51] VITALS: BP 142/90; PULSE 73; RESP 17; TEMP 98.7; O2SAT 96
[2025-03-01] MEDS: POTASSIUM EFFERVESENT TAB 25 MEQ PO ONE (17:00)
== END 2025-03-01 17:02 | disposition home or self-care (01) ==
LOC: ER 11:46
DX: I49.3 Ventricular premature depolarization (principal); I49.1 Atrial premature depolarization; I49.8 Other specified cardiac arrhythmias; E87.6 Hypokalemia; F17.290 Nicotine dependence, other tobacco product, uncomplicated; F41.9 Anxiety disorder, unspecified; J45.909 Unspecified asthma, uncomplicated; Z87.442 Personal history of urinary calculi
CPT/HCPCS: 36415; 71045; 80048; 81001; 83735; 83880; 84484; 85025; 85379; 93005